=== PATIENT | female | born 1980 | race Caucasian/White ===

== ENCOUNTER 2017-03-15 18:31 | Emergency (ER) | payer SELFPAY ==
[~2017-03-15] VITALS: Ht 175.3 cm; Wt 83.9 kg
[~2017-03-15 18:31] MED LIST: CIPR500T78 PO; HYDR-3720 PO; HYDR-623 PO; ORPH100T PO; PRM25T PO; PROM12.59 PO; TMSL.4C PO; TRM50T PO
[2017-03-15] MEDS ORDERED: LIDOCAINE 2% VISCOUS 15 ML UDC PO ONE (19:00)
[2017-03-15] MEDS ORDERED: oxyCODONE/APAP 5/325MG (PERCOCET 5) TABLET PO STA (19:07)
--- NOTE | 2017-03-15 19:15 | ED EENT ---
History of Present Illness General Chief Complaint: Dental Problems/Pain Stated Complaint: BROKEN TOOTH Nursing Triage Note: PT REPORTS BROKEN TOOTH ON R LOWER MOLAR. History of Present Illness Time seen by provider: 18:50 Initial Comments patient reports that 3 days ago she had an injury to her right lower molar, she was evaluated by her dentist and a partial Was put over to protect it until she could have further treatment. Today she noted that more of it broke away. She is in extreme pain. She is taking ibuprofen 800 mg every 8 hours and she had 1 hydrocodone that she took this morning. She is on amoxicillin from her dentist. She is able to tolerate small amounts of food and taking liquids without difficulty. Timing/Duration: gradual Location: mouth (Tooth #30, right lower molar) Prearrival Treatment: over the counter meds (ibuprofen 800 mg @ 1600), prescription meds (hydrocodone 5/325 mg at 0800) Associated Symptoms: denies symptoms Allergies and Home Medications Allergies Coded Allergies: metoclopramide (Unverified Allergy, Unknown, 05/31/14) vancomycin (Unverified Allergy, Unknown, 05/31/14) Home Medications Hydrocodone Bit/Acetaminophen 1 Tab Tablet, 1 EACH PO Q6HR PRN, (Reported) Hydrocodone/Acetaminophen 1 Each Tablet, 1 EACH PO Q6H PRN for pain, #15 Ref 0 Prescribed by: ELENI DIOP on 03/15/171916 Orphenadrine Citrate 100 Mg Tablet.sa, 100 MG PO BID, #20 Prescribed by: FINN JO on 06/06/14 0145 Promethazine Hcl 25 Mg Tab, 25 MG PO Q6H, #30 Prescribed by: JALEN LAM on 05/31/14 1729 Tamsulosin Hcl 0.4 Mg Cap, 0.4 MG PO DAILY, (Reported) Tramadol Hcl 50 Mg Tab, 50 MG PO Q4-6HR PRN for PAIN, #20 FOR PAIN Prescribed by: FINN JO on 06/06/14144 Review of Systems Constitutional: no symptoms reported, see HPI Eyes: No Symptoms Reported, See HPI Ears: No Symptoms Reported, See HPI Nose: no symptoms reported, see HPI Mouth: see HPI, loose teeth, other (pain right lower molar) Throat: no symptoms reported, see HPI Respiratory: no symptoms reported, see HPI Cardiovascular: no symptoms reported, see HPI Gastrointestinal: no symptoms reported, see HPI Musculoskeletal: no symptoms reported, see HPI Skin: no symptoms reported, see HPI Neurological: No Symptoms Reported, See HPI Hematologic/Lymphatic: No Symptoms Reported, See HPI Immunological/Allergic: no symptoms reported, see HPI All Other Systems Reviewed Negative Unless Noted: Yes Past Yrxvwtm-Sfazqp-Syogwa Hx Patient Social History Alcohol Use: Denies Use Recreational Drug Use: No Smoking Status: Never a Smoker 2nd Hand Smoke Exposure: No Recent Foreign Travel: No Contact w/Someone Who Travel: No Recent Infectious Disease Expo: No Recent Hopitalizations: No Surgeries HX Surgeries: Yes (lithotripsy/renal stents) Surgeries: Section, Gallbladder Respiratory Hx Respiratory Disorders: No Cardiovascular Hx Cardiac Disorders: No Neurological Hx Neurological Disorders: No Reproductive System Hx Reproductive Disorders: No Sexually Transmitted Disease: No HIV/AIDS: No Genitourinary Hx Genitourinary Disorders: Yes Genitourinary Disorders: Kidney Stones Gastrointestinal Hx Gastrointestinal Disorders: No Musculoskeletal Hx Musculoskeletal Disorders: No Endocrine Hx Endocrine Disorders: No HEENT HX ENT Disorders: No Cancer Hx Cancer: No Psychosocial Hx Psychiatric Problems: No Integumentary HX Skin/Integumentary Disorder: No Blood Transfusions Hx Blood Disorders: No Reviewed Nursing Assessment Reviewed/Agree w Nursing PMH: Yes Physical Exam Vital Signs Vital Sign - Last 12Hours 03/15/17 18:41 Temp 98.9 Pulse 95 Resp 16 B/P (MAP) 145/85 Pulse Ox 97 O2 Delivery Room Air General Appearance: WD/WN, no apparent distress Eyes: bilateral eye EOMI, bilateral eye PERRL, bilateral eye normal inspection Ears: bilateral ear TM normal, bilateral ear auricle normal, bilateral ear canal normal Nose: normal inspection, No active bleeding, No discharge Mouth/Throat: pharynx normal, dental tenderness (right lower molar, tooth #30, partial fracture), mandibular swelling (right) Neck: non-tender, full range of motion, supple, No lymphadenopathy (R), No lymphadenopathy (L) Cardiovascular: normal peripheral pulses, regular rate, rhythm, no JVD Respiratory: chest non-tender, lungs clear Neurologic/Psychiatric: alert, normal mood/affect, oriented x 3 Skin: normal color, warm/dry Progress/Results/Core Measures Results/Orders My Orders Orders - ELENI DIOP Lidocaine 2% Viscous 15 Ml (Xylocaine Vi (03/15/17 19:00) Oxycodone/Apap 5/325mg Tablet (Percocet (03/15/17 19:07) Vital Signs/I&O Vital Sign - Last 12Hours 03/15/17 18:41 Temp 98.9 Pulse 95 Resp 16 B/P (MAP) 145/85 Pulse Ox 97 O2 Delivery Room Air Blood Pressure Mean: 105 Departure Impression Impression: Primary Impression: Pain, dental Additional Impression: Fracture, tooth Qualified Codes: S02.5XXA - Fracture of tooth (traumatic), initial encounter for closed fracture Disposition: HOME, SELF-CARE Condition: Stable Departure-Patient Inst. Decision time for Depature: 19:00 Referrals: NO,LOCAL PHYSICIAN (PCP/Family) Primary Care Physician Patient Instructions: Fractured Tooth (DC), Dental Pain (DC) Add. Discharge Instructions: 1. Follow up with Dentist. 2. Continue Ibuprofen 800 mg every 8 hours. 3. Ice packs to cheek, 20 min every 2 hours. 4. Continue taking Amoxicillin. 5. Soft foods as tolerated, hot or cold drinks. 6. Apply Lidocaine dental patches every 4-6 hours, leave in place 20-30 min. Remove before sleeping and eating. Return to emergency room if pain becomes unbearable, fevers, or any new concerns. All discharge instructions reviewed with patient and/or family. Voiced understanding. Scripts Hydrocodone/Acetaminophen (Hydrocodon -Acetaminophen 5-325) 1 Each Tablet 1 EACH PO Q6H Y for pain, #15 TAB 0 Refills Prov: ELENI DIOP 03/15/17 ELENI DIOP Mar 15, 2017 19:15
[2017-03-15] MEDS ORDERED: HYDR-3812 PO (19:17)
[2017-03-15 19:23] VITALS: BP 0/0
== END 2017-03-15 19:23 | disposition home or self-care (01) ==
LOC: EDUNIT# 18:31 → ER 18:34
DX: S02.5XXA Fracture of tooth (traumatic), initial encounter for closed fracture (principal); X58.XXXA Exposure to other specified factors, initial encounter; Y92.009 Unspecified place in unspecified non-institutional (private) residence as the place of occurrence of the external cause; Y99.8 Other external cause status
CPT/HCPCS: 99282

== ENCOUNTER 2017-07-11 18:28 | Emergency (ER) | payer SELFPAY ==
[~2017-07-11] VITALS: Ht 175.3 cm; Wt 83.9 kg
[~2017-07-11 18:28] MED LIST changes: +HYDR-3812 PO
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
[2017-07-11] MEDS ORDERED: RX-CYCLOBENZAPRINE 10 MG (FLEXERIL) TAB PPK#3 PO STA (19:11)
[2017-07-11] MEDS ORDERED: RX-HYDROCODONE/APAP 5/325 MG #4 TAB PK PO PRN (19:15)
[2017-07-11] MEDS ORDERED: PRD20T PO (19:21)
[2017-07-11] MEDS ORDERED: NAPR500T PO (19:21)
[2017-07-11 19:31] VITALS: BP 0/0
== END 2017-07-11 19:31 | disposition home or self-care (01) ==
LOC: EDUNIT# 18:28 → ER 18:30
DX: M54.2 Cervicalgia (principal); G89.29 Other chronic pain; Z87.59 Personal history of other complications of pregnancy, childbirth and the puerperium; Z96.0 Presence of urogenital implants; Z87.442 Personal history of urinary calculi
CPT/HCPCS: 99283